=== PATIENT | female | born 1960 | race Caucasian/White ===

== ENCOUNTER 2019-05-27 12:01 | Outpatient (CLI) | payer OTHER, BC, SELFPAY ==
--- NOTE | 2019-05-27 11:32 | DI.RAD_ITS ---
EXAM: XR KNEE LT 4V AP,LAT,HERNANDO,PAT INDICATION: L knee pain. COMPARISON: No exams were available for comparison TECHNIQUE: 2D digital imaging was performed. FINDINGS: The joint spaces are well maintained. There is minimal spurring at the articular aspect of the joe la. No joint effusion is seen. IMPRESSION: Minimal patellofemoral degenerative changes.
== END 2019-05-27 12:21 ==
PROVIDERS: PCP Nurse Practitioner Family; Visit Provider Physician Assistant
DX: M25.562 Pain in left knee (principal); M22.2X2 Patellofemoral disorders, left knee
CPT/HCPCS: 73564

== ENCOUNTER 2019-06-17 02:33 | Outpatient (CLI) | payer OTHER, SELFPAY ==
--- NOTE | 2019-06-17 08:55 | DI.MRI_ITS ---
EXAM: MR LOWER JOINT LT WO CLINICAL HISTORY: L knee injury, medial meniscus tear, S83.241H., H/O FALL TECHNIQUE: Multiplanar multisequence MRI was performed. COMPARISON: XR KNEE LT 4V AP,LAT,HERNANDO,PAT from 05/27/2019 FINDINGS: The cruciate and collateral and extensor mechanisms appear intact. There is a minimal joint effusion . There is an area of high signal in the lateral patellar facet cartilage and a small amount of joanna ma in the underlying bone. The remaining cartilage surfaces appear intact. There is some mild increa sed signal in the body of the medial meniscus but no evidence of a focal tear. Lateral meniscus is un remarkable. The marrow signal is normal. IMPRESSION: Patellar chondromalacia, greatest of the lateral facet. Mild degenerative signal changes in the medi al meniscus. No evidence of a meniscal tear.
== END 2019-06-17 02:53 ==
PROVIDERS: PCP Nurse Practitioner Family; Visit Provider Student in an Organized Health Care Education/Training Program
DX: S83.242A Other tear of medial meniscus, current injury, left knee, initial encounter (principal); M22.42 Chondromalacia patellae, left knee; M23.332 Other meniscus derangements, other medial meniscus, left knee
CPT/HCPCS: 73721

== ENCOUNTER 2019-07-03 07:17 | Day surgery (SDC) | payer OTHER, SELFPAY ==
[2019-07-03 07:28] VITALS: BP 113/75; PULSE 75; RESP 16; TEMP 36.2; O2SAT 96
[2019-07-03] MEDS: Lactated Ringers 1,000 ML 100 ML IV ×2 (07:55→10:34)
[2019-07-03] MEDS: ceFAZolin 2 GM/50 ML BAG IVPB (09:26)
[2019-07-03] MEDS: EPINEPHrine 30 MG/30 ML VIAL (10:35)
[2019-07-03 10:54] VITALS: BP 82/59; PULSE 78; RESP 12; TEMP 36.7; O2SAT 100
[2019-07-03 10:59] VITALS: BP 99/62; PULSE 76; RESP 12; TEMP 36.7; O2SAT 96
[2019-07-03 11:04] VITALS: BP 110/62; PULSE 80; RESP 20; TEMP 36.7; O2SAT 95
[2019-07-03 11:19] VITALS: BP 105/48; PULSE 79; RESP 15; TEMP 36.7; O2SAT 96
--- NOTE | 2019-07-03 11:27 | W.PM.DSUDISC ---
Discharge Plan Disposition Patient Disposition: HOME Condition: Stable Discharge Details Reason For Visit: (L) KNEE MEDIAL MENISCAL TEAR,SYONVITIS Attending Provider: Braulio Edouard Primary Care Provider: Corrina Newby Home Meds and New Rx's Prescriptions: New oxycodone 5 mg tablet 5 - 10 mg PO Q4H PRN (Reason: pain, severe) Qty: 12 RF: 0 Continued No Known Home Meds RF: 0 Discharge Instructions Additional Instructions: Surgery: Left knee arthroscopy with partial medial meniscectomy, partial lateral meniscectomy, patellar chondroplasty, and synovectomy Activity: Weightbearing as tolerated. Avoid high impact activities for a few weeks. Prescriptions: Aspirin 325 mg take 1 daily to prevent a blood clot for 2 weeks Ibuprofen 400-600 mg take 2-3 every 4-6 hours with a meal as needed for moderate pain Oxycodone 5 mg take 1-2 every 4-6 hours as needed for severe pain You may use uvds-oei-sozjvop Tylenol (acetaminophen) as needed for mild pain. These pain medications may be taken all at once or in different combinations as needed. Also, recommend Colace (docusate) as a stool softener as surgery and pain medicine cause constipation. Dressings: Leave dressing in place for 3 to 5 days. Keep clean and dry. Then may remove and cover with Band-Aids as needed. May shower after 7 days if incisions are clean and closed. Follow-up: 10-[address] Edouard Please call the office during business hours with any questions or concerns. Let us know right away if you develop any redness, drainage, fevers, chest pain, or trouble breathing. Do not drink alcohol or drive for at least 24 hours after anesthesia. Referrals: Braulio Edouard MD [ [facility] STAFF PHYSICIAN] - Discharge Orders Discharge Orders: Discharge Order (Routine); Ordered 07/03/19 Ordered By: Braulio Edouard DS: Diagnosis Discharge Diagnosis (1) Synovitis of left knee: Status: Acute (2) Chondromalacia patellae, left knee: Status: Acute (3) Tear of medial meniscus of left knee, current: Status: Suspected
--- NOTE | 2019-07-03 11:42 | W.PM.OP ---
Date of service: 07/03/19 Operative Note Operative Note DATE OF PROCEDURE: 07/03/19 PRE-OP DIAGNOSIS: 1. Left knee medial meniscus tears 2. Left knee small lateral meniscus tear 3. Left knee patellar chondromalacia 4. Left knee synovitis POST-OP DIAGNOSIS: same PROCEDURE: 1. Left knee arthroscopy with partial medial meniscectomy and partial lateral meniscectomy 2. Lateral patellar facet chondroplasty 3. Greater than 2-compartment synovectomy: Anterior, intercondylar notch, medial, and lateral compartments SURGEON: Braulio Edouard AIRPORT ENGINEER: Asael Linn ANESTHESIA: GETA and local ESTIMATED BLOOD LOSS: 5 TOURNIQUET TIME: 0 COMPLICATIONS: None Patient was transported to: PACU Patient's condition: stable Indications: Please see complete medical record for details. Findings: Moderate patellofemoral chondromalacia with grade 2-3 changes and focal areas centrally and laterally. Relatively preserved grade 1-2 changes medial lateral compartment cartilage. Extensive synovitis anteriorly, in the intercondylar notch, medially and laterally. Synovitis was engaging in both the dustin-medial and dustin-lateral compartments. Stable partial thickness undersurface posterior horn medial meniscus tear. Medial meniscus body radial meniscus tear and fraying.. Lateral meniscus body radial meniscus tear and fraying. Partial lateral meniscal root tear with intact posterior meniscotibial ligament and stable posterior horn lateral meniscus to the posterior capsule. Apparent absence of anterior meniscotibial ligament about the expected location of the meniscal root. Intact ACL. Procedure Description: The patient was taken to the operating room and transferred to the operating room table. Anesthesia was induced. All bony prominences were well-padded. Preoperative antibiotics were administered. The left knee was prepped and draped in the usual sterile fashion. The correct patient, procedure, and side of the procedure were all verified prior to incision. The portal sites were pre-injected with 0.25% bupivacaine with epinephrine. A horizontal incision was made for the anteroteral portal and the arthroscope was introduced atraumatically into the patellofemoral compartment with the knee in full extension. A horizontal anteromedial portal was made with the knee in extension and a probe was inserted. A complete diagnostic arthroscopy was performed with findings noted above. A small shaver was used to perform a complete removal of pathologic inflamed lateral, medial and intercondylar notch synovitis. The medial meniscus posterior horn undersurface tear was probed and found to be stable and very small and partial-thickness. This area was left alone. The radial medial meniscus tear was approximately 0.5 cm in depth and 1 cm in length it was trimmed with a shaver until there is stable rim from both the anterior medial anterolateral portals. The post was flipped out of the way and attention was turned to lateral compartment. Although there was a likely partial lateral meniscus root avulsion or tear the surrounding tissue did not appear inflamed or acutely injured. The lateral meniscus posterior horn was also stable to the capsule and via posterior meniscal tibial ligament towards the PCL.. The decision was made to leave this possible root tear alone. A small area of radial lateral meniscus body tear was debrided using mechanical shaver until there is a stable smooth lateral meniscus contour without fraying. The knee was brought back into extension and patellofemoral engaging synovitis completely removed anterolaterally anteromedially. The undersurface of the patella had a central lesion that was well-circumscribed and smooth so was left alone however there was a small area of the lateral patellar facet with a cartilage irregularity that was trimmed using a mechanical shaver until there were no unstable flaps or irregular cartilage surface remaining. The knee was irrigated using the arthroscope pump and suction and all loose bodies and meniscal and synovial tissue were removed. An 18-gauge needle was inserted superior laterally into the knee. All fluid was drained from the knee. The arthroscopic portals were closed using 3-0 Monocryl in a buried fashion. Steri-Strips were applied across the incisions. 25 cc of 0.25% bupivacaine with epinephrine and 4 mg of morphine was injected into the knee. Dry 4 x 4 gauze and ABD were applied about the front of the knee and wrapped in sterile Webril. An John wrap was applied over this bandage. The patient awoke from anesthesia without complication was taken to recovery room in stable condition.
[2019-07-03 12:02] VITALS: BP 112/67; PULSE 72; RESP 16; TEMP 36.1; O2SAT 94
[2019-07-03] MEDS: oxyCODONE 5 MG TAB PO (12:02)
== END 2019-07-03 13:23 | disposition home or self-care (01) ==
PROVIDERS: PCP Nurse Practitioner Family; Visit Provider Student in an Organized Health Care Education/Training Program
PROC: (CPT 29870; principal; 2019-07-03 08:30)
DX: S83.222A Peripheral tear of medial meniscus, current injury, left knee, initial encounter (principal); S83.262A Peripheral tear of lateral meniscus, current injury, left knee, initial encounter; W01.0XXA Fall on same level from slipping, tripping and stumbling without subsequent striking against object, initial encounter; M65.9 Synovitis and tenosynovitis, unspecified; M22.42 Chondromalacia patellae, left knee; Y99.0 Civilian activity done for income or pay
CPT/HCPCS: 29876; 29880; J0690; J1100; J1885; J2001; J2250; J2405; J2704; J3010

== ENCOUNTER 2019-11-27 18:38 | Emergency (ER) | payer BC, SELFPAY ==
[2019-11-27 18:44] VITALS: BP 122/66; PULSE 84; RESP 14; TEMP 36.9; O2SAT 96
--- NOTE | 2019-11-27 20:34 | ED.GENADUL_ITS ---
Discharge Plan Disposition Patient Disposition: HOME Condition: Stable Discharge Details Chief Complaint: Laceration Clinical Impression: Laceration of finger of left hand Primary Care Provider: Corrina Newby ED Provider: Ezekiel Minor Home Meds and New Rx's Prescriptions: No Action No Known Home Meds RF: 0 Discharge Instructions Instructions: Finger Laceration (ED), Skin Adhesive Care (ED) Additional Instructions: Please keep dressing intact for the next 2 days. Change dressing daily thereafter. Monitor for signs of infection including increased redness, pain, swelling, discharge. Return to the ER for any worsening or new concerning symptoms. Discharge Data Discharge Date/Time-TO BE ENTERED AT DEPARTURE: 11/27/19 21:05 Medical Decision Making 59-year-old female here with left thumb laceration. Wound was irrigated with copious sterile saline. Wound repaired with Steri-Strips and skin adhesive. Hemostasis achieved and wound reapproximated well. Usual customary discharge instructions were reviewed with the patient. HPI General Mode of arrival: ambulatory . Date/Time Provider Initiated Documentation: 11/27/19 19:26 . Limitations to Documentation: no limitations . Information obtained by: patient . HPI Narrative: 59-year-old female here with left thumb laceration. Patient notes she lacerated her thumb with a knife while cutting watermelon just prior to arrival. Wound is been bleeding. Bleeding improved with dressing. No associated numbness or tingling. Related Data Home Medications Medication Instructions Recorded Confirmed Unknown [No Known Home Meds] 11/27/19 11/27/19 Allergies Allergy/AdvReac Type Severity Reaction Status Date / Time erythromycin base Allergy Intermediate burning Verified 11/27/19 18:48 and redness in her eyes General Stated Complaint: Laceration KENY: 4 Review of Systems Integumentary/Breasts Comments: lac as per hpi Neurologic Neurologic: Reports as per HPI [facility] Social History Smoking/Tobacco Use Status: Never Alcohol Intake: never Drug use: Never Substance use type: does not use Current gender identity: female Do you feel safe at home: Yes Do you feel safe in your relationship?: Yes Female Reproductive History Menstrual control method: progestin IUCD Exam Neuro Motor: other (Motor intact distal thumb) Sensory Exam: no sensory deficits noted (Distal left thumb) Extrem Left upper extremity: hand Details: laceration (distal left thumb) Course Vital Signs Vital signs: Vital Signs Temperature 36.9 C 11/27/19 18:44 Pulse 84 11/27/19 18:44 Respiratory Rate 14 11/27/19 18:44 Blood Pressure 122/66 11/27/19 18:44 Pulse Oximetry 96 11/27/19 18:44 Temperature 36.9 C 11/27/19 18:44 Temperature Source Skin 11/27/19 18:44 Pulse 84 11/27/19 18:44 Respiratory Rate 14 11/27/19 18:44 Respiratory Effort 11/27/19 18:50 Blood Pressure 122/66 11/27/19 18:44 Blood Pressure Position Sitting 11/27/19 18:44 Pulse Oximetry 96 11/27/19 18:44 Oxygen Delivery Method Room Air 11/27/19 18:44 Oxygen Flow Rate 0 11/27/19 18:44 Pain Level 3 11/27/19 18:51 Procedures Laceration Laceration 1: Site: hand Side (If applicable): left Size (cm): 1.5 Description: linear Depth: simple, single layer Pre-repair: wound explored, irrigated extensively and deep structures intact Size (cm): other (steristrips, skin adhesive)
== END 2019-11-27 21:05 | disposition home or self-care (01) ==
LOC: ER 21:19
PROVIDERS: Emergency Provider Student in an Organized Health Care Education/Training Program; PCP Nurse Practitioner Family
DX: S61.012A Laceration without foreign body of left thumb without damage to nail, initial encounter (principal); W26.0XXA Contact with knife, initial encounter
CPT/HCPCS: 12001; 90471

== ENCOUNTER 2020-03-03 15:23 | Outpatient (CLI) | payer OTHER, SELFPAY ==
--- NOTE | 2020-03-03 15:35 | DI.RAD_ITS ---
EXAM: XR KNEE LT 3V AP,LAT,HERNANDO CLINICAL HISTORY: pain left knee. TECHNIQUE: 2D digital imaging was performed. COMPARISON: CR XR KNEE LT 4V AP,LAT,HERNANDO,PAT from 05/27/2019 FINDINGS: BONES: No acute fracture is present. No bony destructive lesion is seen. JOINTS: The knee is normally aligned. Small joint effusion. SOFT TISSUE: Normal. IMPRESSION: Normal radiographs of the left knee. DATA REPOSITORY: RADIATION DOSE DELIVERED:
== END 2020-03-03 15:43 ==
PROVIDERS: PCP Nurse Practitioner Family; Referring Provider Nurse Practitioner Family; Visit Provider Student in an Organized Health Care Education/Training Program
DX: M25.562 Pain in left knee (principal)
CPT/HCPCS: 73562

== ENCOUNTER 2020-06-22 00:24 | Outpatient (CLI) | payer OTHER, SELFPAY ==
--- NOTE | 2020-06-22 16:06 | DI.MRI_ITS ---
EXAM: MR LOWER JOINT LT WO CLINICAL HISTORY: SYNOVITIS LT KNEE, CHONDROMALACIA PATELLA,TEAR MEDIAL MENISCUS,M65.9,M22.42. TECHNIQUE: Multiplanar multisequence MRI was performed. COMPARISON: MR MR LOWER JOINT LT WO from 06/17/2019 FINDINGS: BONES: There is no fracture or contusion pattern. JOINTS: There is again seen mild hyperintense signal in the lateral patellar facet and mild increased signal in the patella. This is stable compared to the prior examination. No effusion is present. TENDONS: Extensor mechanism: Unremarkable. Medial retinaculum: Unremarkable. Lateral retinaculum: Unremarkable. Popliteus: Unremarkable. MUSCLES: Unremarkable. MENISCI: There is hyperintense signal seen in the body of the medial meniscus which does appear to co ntact the articular surface consistent with a tear. The lateral meniscus is unremarkable. SOFT TISSUES: Unremarkable. LIGAMENTS: Anterior Cruciate: Unremarkable. Posterior Cruciate: Unremarkable. Medial Collateral:Unremarkable. Lateral Collateral: Unremarkable. OTHER: IMPRESSION: 1. Stable chondromalacia patella. 2. Findings consistent with a tear of the body of the medial meniscus. DATA REPOSITORY:
== END 2020-06-22 00:44 ==
PROVIDERS: PCP Nurse Practitioner Family; Visit Provider Student in an Organized Health Care Education/Training Program
DX: M22.42 Chondromalacia patellae, left knee (principal); M65.9 Synovitis and tenosynovitis, unspecified
CPT/HCPCS: 73721

== ENCOUNTER 2020-09-10 08:57 | Day surgery (SDC) | payer OTHER, SELFPAY ==
[2020-09-10] VITALS (8 sets, daily range): BP systolic 116–131; BP diastolic 46–77; PULSE 75–84; RESP 9–21; TEMP 36–36.5; O2SAT 93–97
[2020-09-10] MEDS: Lactated Ringers 1,000 ML 100 ML IV (09:35)
[2020-09-10] MEDS: ceFAZolin 2 GM/50 ML BAG IVPB (12:55)
[2020-09-10] MEDS: EPINEPHrine 30 MG/30 ML VIAL (14:00)
[2020-09-10] MEDS: fentaNYL 100 MCG/2 ML VIAL IVP (15:00)
--- NOTE | 2020-09-10 15:10 | PDOC.DSDIS_ITS ---
Discharge Plan Disposition Patient Disposition: HOME Condition: Stable Discharge Details Reason For Visit: Left knee surgery Attending Provider: Braulio Edouard Primary Care Provider: Corrina Newby Home Meds and New Rx's Prescriptions: New naproxen 250 mg tablet 250 - 500 mg PO BID PRN (Reason: Moderate pain or swelling) Qty: 60 RF: 0 aspirin 81 mg tablet,delayed release (DR/EC) 81 mg PO DAILY 30 Days Qty: 30 RF: 0 oxycodone 5 mg tablet 5 - 10 mg PO Q4H PRN (Reason: moderate to severe pain) Qty: 16 RF: 0 Discharge Instructions Additional Instructions: Surgery: Knee arthroscopy with partial medial meniscectomy Activity: Advance to weightbearing as tolerated. Progress to full range of motion as soon as comfortable. No knee brace or crutches needed. Recommend avoiding cutting, pivoting, sports, and squatting for 2 to 3 months. A physical therapy prescription will be sent electronically to start in 1 to 2 weeks. Prescriptions: Aspirin 81 mg take 1 daily to prevent a blood clot for 30 days Naproxen 250 mg take 1-2 every 12 hours with a meal as needed for moderate pain Oxycodone 5 mg take 1-2 every 4-6 hours as needed for severe pain You may use doke-qll-aemjrqs Tylenol (acetaminophen) as needed for mild pain. These pain medications may be taken all at once or in different combinations as needed. Also, recommend Colace (docusate) as a stool softener as surgery and pain medicine cause constipation. Dressings: Leave dressing in place for 3 days. May then remove and leave open to air or cover incisions with Band-Aids. May shower after 5 days. Follow-up: 10-[address] Edouard (09/21/20 at 2:00 PM) Let us know right away if you develop any redness, drainage, fevers, chest pain, or trouble breathing. Do not drink alcohol or drive for at least 24 hours after anesthesia. Please call the office during business hours with any questions or concerns. Referrals: Braulio Edouard MD [ [facility] STAFF PHYSICIAN] - Discharge Orders Discharge Orders: Discharge Order (Routine); Ordered 09/10/20 Ordered By: Braulio Edouard DS: Diagnosis Discharge Diagnosis (1) Tear of medial meniscus of left knee, current: Status: Suspected
--- NOTE | 2020-09-10 15:19 | ROE_ITS ---
Date of service: 09/10/20 Time of Service: 13:00 Operative Note Operative Note DATE OF PROCEDURE: 09/10/20 PRE-OP DIAGNOSIS: Right knee recurrent medial meniscus tear POST-OP DIAGNOSIS: same PROCEDURE: Right knee 1. Partial medial meniscectomy, CPT #77098 SURGEON: Braulio Edouard ELEVATOR TECHNICIAN: Arabella Dodge ANESTHESIA TYPE: Local By Surgeon and General LMA/ETT Refer to Anesthesia Record ESTIMATED BLOOD LOSS: 5 PATHOLOGY: none sent TOURNIQUET TIME: 0 Patient was transported to: PACU Patient's condition: stable Indications: Please see complete medical record for details. Findings: Recurrent medial meniscus tear with significant radial extension toward the capsule about the medial meniscal body with degenerative type mucoid tissue in both the radial and horizontal complex type pattern. Although medial meniscus body was stable on inspection, probing quickly revealed degenerative, unstable and frayed tissue on the superior and inferior aspects of the horizontal tear as well as about the anterior and posterior margins of the radial component. These were in the zone of previously stable probed medial meniscus tear with surrounding reasonable tissue that had clearly worsened as opposed to healing over the past year after her prior arthroscopy. Grade 1?2 cartilage softening and fraying isolated about the medial tibial plateau and medial femoral condyle near the zone of medial meniscus tear. Stable posterior horn medial meniscal root. Intact ACL and PCL. Intact lateral meniscus with minimal undersurface synovitis fraying of the posterior horn. Stable and intact lateral meniscus root. Grade 1?2 cartilage softening and fraying somewhat generalized patellofemoral compartment. Exam under anesthesia confirmed stable collateral and cruciate ligaments with full knee range of motion. Procedure Description: In the operating room, genral anesthesia was induced. The patient was positioned supine on the operating room table. All bony prominences were well-padded. Preoperative antibiotics were administered. The knee was prepped and draped in the usual sterile fashion. The correct patient, procedure, and side of the procedure were all verified prior to incision. Exam under anesthesia was performed. 10 cc of 1% lidocaine containing epinephrine was infiltrated about the anterior medial and anterior lateral knee arthroscopy portals. The portals were established and a complete diagnostic arthroscopy was performed with relevant findings detailed above. Attention was then turned to the injured medial meniscus tissue. It was probed and superior inferior leaflet fragments were unstable, as well as unstable depth as the probe fell through radially through significantly frayed and degenerative weakened tissue and complex pattern and not amendable to repair. Using a combination of hand instruments including meniscal biters and a power mechanical shaver and working through the anteromedial and anterolateral compartments the meniscus was debrided of all torn tissue and degenerative tissue to a stable margin. Care was taken to preserve as much meniscus tissue was possible although there was significant extension radially about the worst zone of injury. The meniscus was contoured anteriorly and into the posterior horn for smooth margin. The medial meniscus remnant was probed and found to have a stable margin, stable root, and no other tears. Minimal debridement was performed the mechanical shaver and the lateral compartment beneath the undersurface of the posterior horn lateral meniscus of some adjacent synovitis as well as in the patellofemoral compartment of some patellofemoral cartilage fraying. There was a superficial medial femoral condyle small cartilage lesion near the meniscus tear as well as some cartilage thinning fraying and possibly fissuring of the medial tibial plateau that did not require chondroplasty or microfracture. Under direct arthroscopic visualization an 18-gauge needle was passed into the knee from superior lateral to the superior patellar pouch. The knee was copiously irrigated with arthroscopic fluid until there was a clear effluent before being drained of all fluid. The anteromedial anterolateral portals were closed in 3-0 Monocryl in a buried interrupted fashion. 20 cc of 1% lidocaine with epinephrine containing 4 mg of morphine was infiltrated into the knee through the previously placed needle. Mastisol, Steri-Strips, dry 4 x 4 gauze, and sterile soft roll wrapped about the knee. The right lower extremity was then wrapped in a gentle compressive John bandage. The patient awoke from anesthesia without complication and was transferred to the recovery room in a stable condition.
[2020-09-10] MEDS: oxyCODONE 5 MG TAB PO (15:53)
== END 2020-09-10 16:55 | disposition home or self-care (01) ==
PROVIDERS: PCP Nurse Practitioner Family; Visit Provider Student in an Organized Health Care Education/Training Program
PROC: (CPT 29870; principal; 2020-09-10 11:00)
DX: S83.242A Other tear of medial meniscus, current injury, left knee, initial encounter (principal); M22.42 Chondromalacia patellae, left knee; M65.862 Other synovitis and tenosynovitis, left lower leg
CPT/HCPCS: 29881; J0690; J1100; J1885; J2001; J2405; J2704; J3010

== ENCOUNTER 2021-09-21 08:51 | Outpatient (CLI) | payer OTHER, SELFPAY ==
--- NOTE | 2021-09-21 08:30 | DI.RAD_ITS ---
Exam(s) XR KNEE LT 3V AP,LAT,HERNANDO EXAM: XR KNEE LT 3V AP,LAT,HERNANDO CLINICAL HISTORY: left knee f/u. TECHNIQUE: 2D digital imaging was performed. COMPARISON: CR XR KNEE LT 3V AP,LAT,HERNANDO from 03/03/2020 FINDINGS: 3 views There is no evidence of fracture. There is a small joint effusion noted. There is a defect in the s kin anterior to the knee which is probably a laceration. There is no radiopaque foreign body. No pa tellar fracture There is no degenerative narrowing of the knee joint space. No osteophytes. IMPRESSION: Anterior soft tissue findings as above. No osseous findings. However, there does appear to be a small joint effusion. DATA REPOSITORY: RADIATION DOSE DELIVERED:
== END 2021-09-21 08:52 | disposition home or self-care (01) ==
LOC: DIORS 08:51
PROVIDERS: PCP Nurse Practitioner Family; Referring Provider Nurse Practitioner Family; Visit Provider Student in an Organized Health Care Education/Training Program
DX: M70.52 Other bursitis of knee, left knee (principal); M25.462 Effusion, left knee; M79.89 Other specified soft tissue disorders
CPT/HCPCS: 73562

== ENCOUNTER 2022-05-03 15:47 | Outpatient (CLI) | payer OTHER, SELFPAY ==
[2022-05-03 15:58] VITALS: BP 112/79; PULSE 80; RESP 20; TEMP 36.6; O2SAT 99
--- NOTE | 2022-05-03 16:41 | PDOC.PAIN_ITS ---
Date of service: 05/03/22 Time of Service: 16:51 Pain Clinic Procedure Note Procedure Note Procedure Note: ULTRASOUND GUIDED LEFT PES ANSERINE BURSA INJECTION Pre-Procedural Evaluation: GUSTAVO MARIE has been referred to the [facility] for an Ultrasound Guided left Pes Anserine bursa injection for a chief complaint of medial knee calf pain. Pre-procedure Pain Score: 5/10 Dx: Pes Anserine bursitis Patient was interviewed and the medical record reviewed. There were no medical, pharmacologic, radiographic, or other structural contraindications to preforming an ultrasound guided injection. Risks and expected side effects as well as potential benefits of the procedure were reviewed. The patient consent form was signed and witnessed. Standard time-out procedure was performed. The use of direct ultrasound visualization of the needle (rather than a non- guided injection) was required to increase patient safety by excluding inadvertent intramuscular, intratendinous, or intraneural needle placement and minimizing bleeding by avoiding osteochondral or vascular injury from the needle. Additionally, the increased accuracy of placement may increase clinical effectiveness and will allow higher diagnostic specificity when evaluating effectiveness of this injection. Procedure Description: The patient was placed in the supine position and automated blood pressure cuff and pulse oximeter applied for monitoring during the procedure and recorded in the medical record. Pre-injection ultrasound scanning of the area of interest was performed using linear transducer, identifying relevant anatomy, landmarks, and neurovascular structures allowing for optimal needle path. The site was then prepared in the usual sterile fashion, using thorough Chlorhexadine preparation of the skin and sterile draping. The same ultrasound transducer was then passed into the sterile field using sterile probe cover and sterile ultrasound gel. The injection target was again visualized. Skin and subcutaneous tissues were anesthetized with 2 mL of 1% Lidocaine. A 22 G Pajunk 3.5 ultrasound needle was placed under live ultrasound guidance, using an in-plane approach, to the target area. After visualization of the needle tip at the target area, 1 cc of Depomedrol (40 mg/cc) was injected into the bursa after negative aspiration for blood. Next 3 cc of 2% Lidocaine was injected into the bursa. Ultrasound images were captured and stored for documentation purposes. Post-procedure Pain Score:0/10 Vital signs were stable throughout the procedure and were as recorded in the docflowsheet by the nursing staff. Follow up plans and appointments were discussed with the patient.Post procedure instruction was given as documented in nursing documentation and having met discharge criteria, they were discharged from the [facility]. COMMENTS: I also gave her a handout on Pes Anserine busitis. Mateusz Turner DO, MPH [facility]-Pain Management [facility] for [facility] Management
[2022-05-03 16:42] VITALS: PULSE 63; O2SAT 100
[2022-05-03] MEDS: methylPREDNISolone ACETATE 40 MG/ML VIAL IJ (16:50)
[2022-05-03] MEDS: Lidocaine 2% Pres-Free 5 ML VIAL IJ (16:50)
== END 2022-05-03 15:48 | disposition home or self-care (01) ==
PROVIDERS: PCP Nurse Practitioner Family; Visit Provider Preventive Medicine Occupational Medicine
DX: M70.52 Other bursitis of knee, left knee (principal)
CPT/HCPCS: 20611; J1030

== ENCOUNTER 2022-09-10 07:15 | Emergency (ER) | payer BC, SELFPAY ==
[2022-09-10] VITALS (60 sets, daily range): BP systolic 108–155; BP diastolic 39–100; PULSE 59–86; RESP 14–22; TEMP 36.4; O2SAT 89–98
--- NOTE | 2022-09-10 07:30 | DI.CT_ITS ---
Exam(s) CT HEAD WO EXAM: CT HEAD WO CLINICAL HISTORY: dizzy, r/o stroke/bleed. TECHNIQUE: Imaging Protocol: Axial computed tomography images with coronal and sagittal reformatted images were created and reviewed COMPARISON: No exams were available for comparison FINDINGS: Ventricles and Extra axial spaces: Normal in size and morphology for the patient's age. Hemorrhage: None. Cerebral parenchyma: Normal. Midline shift: None. Brainstem/Cerebellum: Normal. Calvarium: Normal. Visualized Paranasal sinuses/Mastoids: Clear. Soft Tissues: Unremarkable. IMPRESSION: No acute intracranial process. RADIATION DOSE DELIVERED: 780.53mGy.cm Total DLP DATA REPOSITORY: All CT scans at this facility are submitted to the National Radiology Data Registry (NRDR) Dose Index Registry (DIR) with the [employer] (ACR). RADIATION OPTIMIZATION: All CT scans at this facility use at least one of these dose optimization te chniques: automated exposure control; mA and/or kV adjustment per patient size (includes targeted exa ms where dose is matched to clinical indication); or iterative reconstruction.
--- NOTE | 2022-09-10 07:30 | RT.EKG_ITS ---
APPROVED REPORT Exam: Resting ECG Reason for Exam: dizzy Patient Location: E HR:66 bpm ECG Measurements Heart Rate 66 AXIS MN 175 P 59 QRSd 95 QRS -15 QT 410 T 59 QTc 431 Conclusion Sinus rhythm...normal P axis, V-rate 60- 99 Physician: no stemi
--- NOTE | 2022-09-10 07:41 | W.ED.GENAD ---
Discharge Plan Discharge Details Chief Complaint: Dizzy/Sync Clinical Impression: Dizziness Primary Care Provider: Corrina Newby ED Provider: Kwame Chamorro Home Meds and New Rx's Prescriptions: No Action No Known Home Meds Medical Decision Making 61-year-old female with a past medical history of type 2 diabetes, who presents today for evaluation of dizziness. Patient states that she woke up this morning and while under the covers in bed turned to the side, looked at her phone and noticed that she felt the world spinning in a horizontal fashion. She denies any tinnitus. No headache. When she got up she felt notably dizzy and imbalance and felt that the world was spinning around. She came to the ER with her significant other, and symptoms had improved but not resolved by that time. She was nauseous but had no vomiting. She denies any current chest pain or shortness of breath. She denies any numbness tingling or weakness. She denies having symptoms like this in the past. She denies any recent falls or trauma. No history of stroke. No other complaints at this time. Physical exam demonstrates a well-appearing female, she does have horizontal unidirectional fatigable nystagmus to the left, negative test of skew for vertical correction. Patient ambulates well with no wide-based or ataxic gait. No other focal abnormalities on neurologic assessment. At this time symptoms appear consistent with peripheral vertigo. We will hydrate and give meclizine. We will get a CT scan to rule out significant stroke or bleed. We will monitor closely and reassess. Of note family does admit that for the last few years the patient developed mild heartburn whenever she exerts herself per , we will check EKG and troponin as well out of an abundance of precaution. Patient will be signed out to my colleagues for follow-up on labs and imaging. HPI General Date/Time Provider Initiated Documentation: 09/10/22 07:21. HPI Narrative: 61-year-old female with a past medical history of type 2 diabetes, who presents today for evaluation of dizziness. Patient states that she woke up this morning and while under the covers in bed turned to the side, looked at her phone and noticed that she felt the world spinning in a horizontal fashion. She denies any tinnitus. No headache. When she got up she felt notably dizzy and imbalance and felt that the world was spinning around. She came to the ER with her significant other, and symptoms had improved but not resolved by that time. She was nauseous but had no vomiting. She denies any current chest pain or shortness of breath. She denies any numbness tingling or weakness. She denies having symptoms like this in the past. She denies any recent falls or trauma. No history of stroke. No other complaints at this time. Related Data Home Medications Medication Instructions Recorded Confirmed Unknown [No Known Home Meds] 09/21/21 05/03/22 Allergies Allergy/AdvReac Type Severity Reaction Status Date / Time erythromycin base Allergy Intermediate burning Verified 09/10/22 07:25 and redness in her eyes General Stated Complaint: Dizzy/Sync KENY: 3 Review of Systems All systems reviewed & are unremarkable except as noted in HPI and below PFSH All Active Problems (Updated 09/10/22 @ 07:48 by Kwame Chamorro DO) Dizziness (Acute) COVID-19 (Acute 05/12/21) Pes anserinus bursitis of left knee (Acute) Type II diabetes mellitus with complication, uncontrolled (Acute) Increased body mass index (Acute) Hiatal hernia (Acute) gastritis Herpes (Acute) Esophageal reflux (Acute) Diverticulosis (Acute) Calculus, kidney (Acute) Fagan cyst (Acute) Chondromalacia patellae, left knee (Acute ~04/2019) Synovitis of left knee (Acute ~04/2018) Indigestion (Acute) Leg pain, left (Acute) Surgical History Biopsy of breast 2005 -Left Benign Laparoscopic, Ovarian Cystectomy 1997 Right Repair of inguinal hernia 2009 Status post de Quervain's release surgery R wrist Family History Other Coronary artery disease Family history of breast cancer Leukemia Social History Smoking/Tobacco Use Status: Never Smoking risk assessment performed?: Yes Alcohol Intake: never Drug use: Never Substance use type: does not use Current gender identity: female Do you feel safe at home: Yes Do you feel safe in your relationship?: Yes Female Reproductive History Menstrual control method: progestin IUCD Exam Narrative Exam Narrative: 1.Const: Well-nourished, Well-developed, appearing stated age 2.Eyes: PERRL, no conjunctival injection, and symmetrical lids. 3.ENT: Atraumatic external nose and ears. Moist MM. Neck: Symmetric, trachea midline, No thyromegaly. Horizontal left-sided unidirectional fatigable nystagmus is present. 4.CVS: +S1/S2, No murmurs or gallops. Peripheral pulses 2+ and equal in all extremities. Brisk capillary refill in all extremities. 5.RESP: Unlabored respiratory effort. Clear to auscultation bilaterally. No wheezes rales or rhonchi 6.GI: Soft, Nontender/Nondistended, No hepatosplenomegaly. No guarding or rebound. 7.MSK: Normocephalic/Atraumatic, Extremities w/o deformity or ttp No cyanosis or clubbing, Normal movement of all extremities 8.Skin: Warm, Dry. No rashes or lesions. 9.Neuro: solutions market consultant II-XII grossly intact. Sensation grossly intact, no focal neurologic deficits. All 6 cardinal planes of vision are fully intact. No evidence of rotatory or vertical nystagmus. The patient demonstrated a normal [id number]-ucrn-[id number], good dexterity. There was no evidence of dysdiadochokinesia. Patient was able to ambulate without difficulty. There was no wide-based gait. Romberg testing was normal. Kcys-eo-lzvl testing was normal. Sensation was intact bilaterally as well as muscle strength bilaterally for all extremities. Patient was able to verbalize butter cup with no slurring, or miss pronunciation. Cerebellar function testing is normal. The patient demonstrates a normal hints exam with no findings concerning for a central event. No vertical nystagmus. Patient does have horizontal unidirectional left-sided fatigable nystagmus. The head impulse test demonstrates notable positive reproduction of symptoms with leftward movement. Normal test of skew. No suggestion of a central cerebellar event. 10.Psych: (AAO) x3. Appropriate mood and affect Course Vital Signs Vital signs: Vital Signs Temperature 36.4 C 09/10/22 07:20 Pulse 69 09/10/22 07:20 Respiratory Rate 18 09/10/22 07:20 Blood Pressure 152/88 H 09/10/22 07:20 Pulse Oximetry 97 09/10/22 07:20 Temperature 36.4 C 09/10/22 07:20 Temperature Source Oral 09/10/22 07:20 Pulse 69 09/10/22 07:20 Respiratory Rate 18 09/10/22 07:20 Blood Pressure 152/88 H 09/10/22 07:20 Blood Pressure Position Supine 09/10/22 07:20 Pulse Oximetry 97 09/10/22 07:20 Oxygen Delivery Method Room Air 09/10/22 07:20 Oxygen Flow Rate 0 09/10/22 07:20
[2022-09-10] MEDS: Normal Saline 1,000 ML 1000 ML IV (07:45)
[2022-09-10] MEDS: Meclizine 25 MG TAB PO (07:45)
[2022-09-10 07:49] LABS: Abs Immature Grans 0.03 10^3/uL (0.0-0.06); Absolute Basophil Count 0.08 10^3/uL (0.0-0.2); Absolute Eosinophil Count 0.23 10^3/uL (0.0-0.7); Absolute Lymphocyte Count 2.73 10^3/uL (1.2-3.4); Absolute Monocyte Count 0.64 10^3/uL (0.1-0.8); Absolute Neutrophil Count 4.25 10^3/uL (1.2-6.7); Eosinophils % 2.9; HCT 40.1 % (36.0-46.0); HGB 13.6 g/dL (11.2-15.7); Immature Grans % 0.4; Lymphocytes % 34.3; MCH 29.2 pg (27.0-33.0); MCHC 33.9 % (32.0-36.0); MCV 86 fL (80-95); MPV 9.9 fL (8.0-11.0); Neutrophils % 53.4; Platelet Count 265 10^3/uL (130-400); RBC 4.65 10^6/uL (3.93-5.22); RDW 11.9 % (11.7-14.6); RDW-SD 37.2 fL; WBC 7.96 10^3/uL (4.4-10.8)
[2022-09-10] MEDS: Pantoprazole 40 MG TABCR PO (08:02)
[2022-09-10 08:06] LABS: ALT 16 U/L (14-59); AST 12 U/L (15-37); Albumin 3.5 g/dL (3.4-5.0); Alkaline Phosphatase 96 U/L (46-116); BUN 17 mg/dL (7-18); Bilirubin, Total 0.5 mg/dL (0.2-1.0); CREATININE 0.8 mg/dL (0.55-1.02); Calcium 8.7 mg/dL (8.5-10.1); Chloride 102 mmol/L (98-107); Estimated GFR 83.78 (mL/min/1.73m2); Glucose 175 mg/dL (74-106); Potassium 3.8 mmol/L (3.5-5.1); Sodium 139 mmol/L (136-145); Total Protein 7.7 g/dL (6.4-8.2)
[2022-09-10 08:07] LABS: Troponin I < 50 ng/L (<or=60)
--- NOTE | 2022-09-10 08:36 | DI.VRAD_ITS ---
PROCEDURE INFORMATION: Exam: CT Head Without Contrast Exam date and time: 09/10/2022 7:12 AM Age: 61 years old Clinical indication: Stroke-like symptoms; Dizziness/giddiness TECHNIQUE: Imaging protocol: Computed tomography of the head without contrast. Reformatted images were created and reviewed. Radiation optimization: All CT scans at this facility use at least one of these dose optimization techniques: automated exposure control; mA and/or kV adjustment per patient size (includes targeted exams where dose is matched to clinical indication); or iterative reconstruction. Other technique: STROKE PROTOCOL was implemented. COMPARISON: No relevant prior studies available. FINDINGS: Brain: No evidence for acute territorial infarct. No hemorrhage. No significant white matter disease. No edema. Cerebral ventricles: No ventriculomegaly. Paranasal sinuses: Visualized sinuses are unremarkable. No fluid levels. Mastoid air cells: No mastoid effusion. Bones/joints: No acute fracture. Soft tissues: No acute abnormality. IMPRESSION: No acute intracranial abnormality. ASSESSMENT: ASPECTS ([place] Stroke Program Early CT Score) is 10. Dictated and Authenticated by: Donnie Wylie MD. Ordering:LACHELLE Puente MD
[2022-09-10] MEDS: LORazepam 2 MG/ML VIAL 1 MG IVP (08:46)
[2022-09-10] MEDS: Dexamethasone 10 MG/ML VIAL IVP (08:46)
[2022-09-10 10:54] LABS: Troponin I < 50 ng/L (<or=60)
[2022-09-10] MEDS: Lactated Ringers 1,000 ML 125 ML IV (10:55)
[2022-09-10] MEDS: diphenhydrAMINE 50 MG/ML VIAL IVP (10:55)
--- NOTE | 2022-09-10 11:00 | DI.CT_ITS ---
Exam(s) CT BRAIN NECK CTA EXAM: CT BRAIN NECK CTA CLINICAL HISTORY: vetigo, seeing yellow spots. TECHNIQUE: Imaging Protocol: Axial CT angiography was performed with multi-slice acquisition and mu lti-planar and 3D reconstructions. CONTRAST MATERIAL: Intravenous: Omnipaque 350 Contrast volume:structured data in ml COMPARISON: CT CT HEAD WO from 09/10/2022 FINDINGS: CT Head W/O and W contrast: Ventricles and Extra axial spaces: Normal in size and morphology for the patient's age. Hemorrhage: None. Cerebral parenchyma: Normal. Midline shift: None. Brainstem/Cerebellum: Normal. Calvarium: Normal. Visualized Paranasal sinuses/Mastoids: Mucosal thickening. Soft Tissues: Unremarkable. Enhancement: Normal. CTA Brain W: Internal Carotid Arteries: Petrous: Normal. Cavernous: Normal. Cerebral: Normal. Middle Cerebral Arteries: Right: No aneurysm, occlusion or significant stenosis. Left: No aneurysm, occlusion or significant stenosis. Anterior Cerebral Arteries: Right: No aneurysm, occlusion or significant stenosis. Left: No aneurysm, occlusion or significant stenosis. Posterior cerebral Arteries: Right: No aneurysm, occlusion or significant stenosis. Left: No aneurysm, occlusion or significant stenosis. Vertebral Arteries: Right: No aneurysm, occlusion or significant stenosis. Left: No aneurysm, occlusion or significant stenosis. Basilar Artery: No aneurysm, occlusion or significant stenosis. CTA Neck W: Common Carotid: Right: No dissection, occlusion or significant stenosis. Left: No dissection, occlusion or significant stenosis. External Carotid: Right: No dissection, occlusion or significant stenosis. Left: No dissection, occlusion or significant stenosis. Internal Carotid: Right: No dissection, occlusion or significant stenosis. Left: No dissection, occlusion or significant stenosis. Vertebral Artery: Right: No dissection, occlusion or significant stenosis. Left: No dissection, occlusion or significant stenosis. Lung Apices: Evaluation limited by expiratory changes and respiratory motion. Question of ground-gla ss opacities bilaterally. Bones: No acute abnormality. Soft Tissues: Normal. IMPRESSION: 1. Normal CTA examination of the [place]. 2. Unremarkable CT Head. 3. Normal CTA examination of the neck. 4. Question of bilateral upper lobe ground-glass opacities versus expiratory changes and respiratory motion.. Clinical correlation recommended RADIATION DOSE DELIVERED: 2,155.01mGy.cm Total DLP DATA REPOSITORY: All CT scans at this facility are submitted to the National Radiology Data Registry (NRDR) Dose Index Registry (DIR) with the [employer] (ACR). RADIATION OPTIMIZATION: All CT scans at this facility use at least one of these dose optimization te chniques: automated exposure control; mA and/or kV adjustment per patient size (includes targeted exa ms where dose is matched to clinical indication); or iterative reconstruction.
[2022-09-10] MEDS: Normal Saline Flush 10 ML SYR IVP (12:23)
[2022-09-10] MEDS: Normal Saline - Diluent 50 ML VIAL IJ (12:23)
[2022-09-10] MEDS: Omnipaque 350 MG/ML 100 ML BTL IJ (12:23)
--- NOTE | 2022-09-10 13:21 | DI.VRAD_ITS ---
PROCEDURE INFORMATION: Exam: CTA Head With Contrast, Arteriography Exam date and time: 09/10/2022 11:09 AM Age: 61 years old Clinical indication: Other: Vertigo, seeing yellow spots TECHNIQUE: Imaging protocol: Computed tomographic angiography of the head with contrast. Exam focused on the arteries. 3D rendering (Not supervised by radiologist): MIP and/or 3D reconstructed images were created by the technologist. Radiation optimization: All CT scans at this facility use at least one of these dose optimization techniques: automated exposure control; mA and/or kV adjustment per patient size (includes targeted exams where dose is matched to clinical indication); or iterative reconstruction. Contrast material: OMNIPAQUE 350; Contrast volume: 85 ml; Contrast route: INTRAVENOUS (IV); COMPARISON: CT HEAD WO 09/10/2022 7:12 AM FINDINGS: ANTERIOR CIRCULATION: Right internal carotid artery: Intracranial segment is patent with no significant stenosis. No aneurysm. Right middle cerebral artery: No occlusion or significant stenosis. No aneurysm. Right anterior cerebral artery: No occlusion or significant stenosis. No aneurysm. Left internal carotid artery: Intracranial segment is patent with no significant stenosis. No aneurysm. Left middle cerebral artery: No occlusion or significant stenosis. No aneurysm. Left anterior cerebral artery: No occlusion or significant stenosis. No aneurysm. POSTERIOR CIRCULATION: Right vertebral artery: No occlusion or significant stenosis. No aneurysm. Left vertebral artery: No occlusion or significant stenosis. No aneurysm. Basilar artery: No occlusion or significant stenosis. No aneurysm. Right posterior cerebral artery: No occlusion or significant stenosis. No aneurysm. Left posterior cerebral artery: No occlusion or significant stenosis. No aneurysm. Brain: No definite mass, mass effect, or midline shift. Cerebral ventricles: No ventriculomegaly. Paranasal sinuses: Mild mucosal thickening in the right frontal sinus and right anterior ethmoidal air cells. Bones/joints: Unremarkable. No acute fracture. Soft tissues: Unremarkable. IMPRESSION: 1. No major vessel cut off/occlusion or high-grade stenosis in the arteries of the [id number]. 2. No acute intracranial abnormality on noncontrast CT. PROCEDURE INFORMATION: Exam: CTA Neck With Contrast Exam date and time: 09/10/2022 11:09 AM Age: 61 years old Clinical indication: Other: Vertigo, seeing yellow spots TECHNIQUE: Imaging protocol: Computed tomographic angiography of the neck with contrast. 3D rendering (Not supervised by radiologist): MIP and/or 3D reconstructed images were created by the technologist. Radiation optimization: All CT scans at this facility use at least one of these dose optimization techniques: automated exposure control; mA and/or kV adjustment per patient size (includes targeted exams where dose is matched to clinical indication); or iterative reconstruction. Contrast material: OMNIPAQUE 350; Contrast volume: 85 ml; Contrast route: INTRAVENOUS (IV); COMPARISON: CT HEAD WO 09/10/2022 7:12 AM FINDINGS: Right common carotid artery: No stenosis. No dissection or occlusion. Right internal carotid artery: No stenosis of the extracranial segment. No dissection or occlusion. Right external carotid artery: No occlusion or stenosis of the origin. Left common carotid artery: No stenosis. No dissection or occlusion. Left internal carotid artery: No stenosis of the extracranial segment. No dissection or occlusion. Left external carotid artery: No occlusion or stenosis of the origin. Right vertebral artery: No stenosis. No dissection or occlusion. Left vertebral artery: No stenosis. No dissection or occlusion. Soft tissues: Normal. No significant soft tissue swelling. Bones/joints: No acute fracture. Lungs: Nonspecific ground-glass densities in the bilateral upper lungs, possible interstitial pulmonary edema. IMPRESSION: No stenosis or occlusion. REFERENCES: NASCET CRITERIA. The degree of stenosis in the cervical segment of the internal carotid artery is based on NASCET criteria. Normal is no stenosis. Mild is less than 50% stenosis. Moderate is 50-69% stenosis. Severe is 70% to 99% stenosis. Total occlusion is no detectable patent lumen. Dictated and Authenticated by: Surya Galindo MD. Ordering:CARMEL Torres MD
== END 2022-09-10 14:22 | disposition home or self-care (01) ==
PROVIDERS: Student in an Organized Health Care Education/Training Program; Emergency Provider Emergency Medicine; PCP Nurse Practitioner Family
DX: R42 Dizziness and giddiness (principal); E11.9 Type 2 diabetes mellitus without complications; H55.00 Unspecified nystagmus
CPT/HCPCS: 36415; 70496; 70498; 80053; 93005; 96361; 96374; 96375; 99284; 70450; 84484; 85025; 93010; J1100; J1200; J2060; J3490

== ENCOUNTER 2022-10-10 10:40 | Outpatient (CLI) | payer BC, SELFPAY | END 2022-10-10 10:41 | disposition home or self-care (01) | LOC: DI.CM 10:41 | PROVIDERS: PCP Nurse Practitioner Family; Visit Provider Nurse Practitioner Family | CPT/HCPCS: 93010 ==

== ENCOUNTER 2023-01-16 10:33 | Outpatient (CLI) | payer BC, SELFPAY ==
--- NOTE | 2023-01-16 10:30 | RT.EKG_ITS ---
APPROVED REPORT Exam: Resting ECG Reason for Exam: chest pain Patient Location: O HR:70 bpm ECG Measurements Heart Rate 70 AXIS CA 161 P 21 QRSd 96 QRS -36 QT 408 T 71 QTc 441 Conclusion Sinus rhythm...normal P axis, V-rate 50- 99 Left axis deviation...QRS axis (-30,-90) Borderline T abnormalities, anterior leads...T flat or neg, V2-V4
== END 2023-01-16 10:34 | disposition home or self-care (01) ==
LOC: DI.CM 10:36
PROVIDERS: PCP Nurse Practitioner Family; Visit Provider Nurse Practitioner Family
DX: R07.9 Chest pain, unspecified (principal)
CPT/HCPCS: 93010

== ENCOUNTER 2023-01-31 01:38 | Outpatient (CLI) | payer BC, SELFPAY ==
--- NOTE | 2023-01-31 07:00 | DI.MAMMO_ITS ---
Exam(s) MAMMO SCREENING EXAM: MAMMO SCREENING CLINICAL HISTORY: screening, Z12.39. TECHNIQUE: Bilateral full field digital CC and MLO mammographic images were obtained with 3D tomosyn thesis and utilizing computer aided detection (CAD). COMPARISON: Prior 2015 mammogram reviewed. There are no interval mammograms since 2015. FINDINGS: There has been no significant change in the appearance and distribution of the fibroglandular tissue. Benign-appearing lymph nodes both breasts remain stable. There are no new spiculated masses nor malignant appearing microcalcification groups. There is no significant architectural distortion nor skin thickening-retraction. IMPRESSION: No radiographic evidence of malignancy. BI-RADS Category 1 - Negative Breast Density - Category B - Scattered areas of fibroglandular density Breast density Category C or D implies that the patient has dense breast tissue. Dense breast tissue can make it harder to find cancer on a mammogram. Dense breast tissue is also associated with an incr eased risk of breast cancer. This information about the result of the mammogram report was provided to the patient to raise their awareness. Use this report when you speak with the patient about their risks for breast cancer, which includes their family history. At that time, you may recommend additional screening tests (Ultrasoun d or MRI) as these tests may add significant information. A negative radiographic report should not delay biopsy if a dominant or clinically suspicious mass is present. Up to ten percent of cancers are not identified on mammography. A negative report may reinforce clinical impression. Adenosis and dense breasts may obscure an underlying neoplasm. False positive reports average 6 to 10%. Patient will receive a letter notifying them of these results.
== END 2023-01-31 01:58 ==
PROVIDERS: PCP Nurse Practitioner Family; Visit Provider Nurse Practitioner Family
DX: Z12.31 Encounter for screening mammogram for malignant neoplasm of breast (principal)
CPT/HCPCS: 77063; 77067

== ENCOUNTER 2023-02-15 05:26 | Outpatient (CLI) | payer BC, SELFPAY ==
[2023-02-15 08:47] LABS: ALT 16 U/L (14-59); AST 16 U/L (15-37); Albumin 3.6 g/dL (3.4-5.0); Alkaline Phosphatase 99 U/L (46-116); Anion Gap 9.1 mmol/L (3-11); BUN 11 mg/dL (7-18); Bilirubin, Total 0.5 mg/dL (0.2-1.0); CO2 27.9 mmol/L (21.0-32.0); CREATININE 0.7 mg/dL (0.55-1.02); Calcium 8.9 mg/dL (8.5-10.1); Calculated LDL 104 mg/dL (<100); Chloride 106 mmol/L (98-107); Cholesterol 185 mg/dL (<200); Estimated GFR 97.72 (mL/min/1.73m2); Glucose 121 mg/dL (74-106); HDL Cholesterol 62 mg/dL (40-60); Potassium 4.3 mmol/L (3.5-5.1); Sodium 143 mmol/L (136-145); Total Protein 7.7 g/dL (6.4-8.2); Triglyceride 95 mg/dL (<150)
== END 2023-02-15 05:27 | disposition home or self-care (01) ==
PROVIDERS: PCP Nurse Practitioner Family; Visit Provider Nurse Practitioner Family
DX: Z13.220 Encounter for screening for lipoid disorders (principal)
CPT/HCPCS: 36415; 80053; 80061

== ENCOUNTER 2023-02-15 09:45 | Outpatient (REF) | payer BC, SELFPAY ==
--- NOTE | 2023-02-15 08:30 | PAPFT_PTH ---
PATIENT: Caryn Santiago LOC: [facility] U#:[id number] AGE/SX: 62/F ROOM: RE02/15/[address]: Keke Leiva MD : 1960 BED: DIS: 02/15/2023 SPEC #: [id number] RECD: 02/15/23 18:20 STATUS: ДМИТРИЙ REDodie #: [id number] CHAD: 02/15/23 08:[address]: Keke Leiva DEPT: [facility] Cytology RECD BY: Jessi Ayala ENTERED: 02/15/23 18:21 SP TYPE: PAPFT OTHR DR: Joselito Herrera DNP Tissues: 1 - CX/ENDOCX FOR PAP SMEARS Procedures: PAP THIN PREP/[facility] Screening HPV DNA PROBE Comments: [id number]
== END 2023-02-15 09:46 | disposition home or self-care (01) ==
LOC: LBN 09:45
PROVIDERS: PCP Nurse Practitioner Family; Visit Provider Obstetrics & Gynecology
DX: Z12.4 Encounter for screening for malignant neoplasm of cervix (principal); Z11.51 Encounter for screening for human papillomavirus (HPV)
CPT/HCPCS: 88142; 87624

== ENCOUNTER 2024-03-04 19:23 | Outpatient (REF) | payer BC, SELFPAY ==
[2024-03-04 21:23] LABS: Anion Gap 9.3 mmol/L (3-11); BUN 12 mg/dL (7-18); CO2 26.7 mmol/L (21.0-32.0); CREATININE 0.8 mg/dL (0.55-1.02); Calcium 8.9 mg/dL (8.5-10.1); Chloride 105 mmol/L (98-107); Estimated GFR 82.74 (mL/min/1.73m2); Glucose 106 mg/dL (74-106); Potassium 3.8 mmol/L (3.5-5.1); Sodium 141 mmol/L (136-145)
== END 2024-03-04 19:24 | disposition home or self-care (01) ==
LOC: LBN 19:23
PROVIDERS: PCP Nurse Practitioner Family; Visit Provider Nurse Practitioner Family
DX: E11.65 Type 2 diabetes mellitus with hyperglycemia
CPT/HCPCS: 80048

== ENCOUNTER 2024-05-13 20:45 | Outpatient (REF) | payer BC, SELFPAY | END 2024-05-13 20:46 | disposition home or self-care (01) | LOC: LBN 20:45 | PROVIDERS: PCP Nurse Practitioner Family; Visit Provider Nurse Practitioner Family | DX: J02.9 Acute pharyngitis, unspecified (principal) | CPT/HCPCS: 87070 ==

== ENCOUNTER 2024-08-26 08:50 | Outpatient (CLI) | payer BC, SELFPAY ==
--- NOTE | 2024-08-26 08:30 | DI.RAD_ITS ---
Exam(s) XR CHEST 2V PA LATERAL EXAM: XR CHEST 2V PA LATERAL CLINICAL HISTORY: cough, r/o pneumonia, R05.9 TECHNIQUE: 2D digital imaging was performed. Two views. COMPARISON: CR ABD FLAT UPRIGHT PA CHEST from 03/20/2008 FINDINGS: HEART: Normal size. Aorta: Not dilated. PULMONARY VASCULATURE: Normal. MEDIASTINUM: Unremarkable. LUNGS: Clear. PLEURAL SPACE: No pleural effusion or pneumothorax. BONE:Unremarkable for age. SOFT TISSUES: Unremarkable. IMPRESSION: No acute abnormality. DATA REPOSITORY: RADIATION DOSE DELIVERED:
== END 2024-08-26 09:10 ==
LOC: DI 08:51
PROVIDERS: PCP Nurse Practitioner Family; Visit Provider Physician Assistant
DX: R05.9 Cough, unspecified (principal)
CPT/HCPCS: 71046

== ENCOUNTER 2024-09-16 00:33 | Outpatient (CLI) | payer BC, SELFPAY ==
--- NOTE | 2024-09-16 08:30 | DI.US_ITS ---
APPROVED REPORT EXAM: Comprehensive 2D, Doppler, and color-flow Echocardiogram Patient Location: Out-Patient Nurse Supervisor: Percy Pittman RDCS (AE) Indications: Chest pain on exertion Other Information Study Quality: Adequate Conclusion Normal left ventricular wall thickness and chamber size. Ejection fraction is 55 to 60%. Wall motio n is normal Normal right ventricular size and function Both atria are normal in size There are no structural or hemodynamically significant valvular abnormalities Estimated right ventricular systolic pressure is 19 mmHg Wall motion Left Ventricle The left ventricle is normal size. The left ventricular systolic function is normal. The left ventric ular ejection fraction is within the normal range. There is normal left ventricular wall thickness. T here is normal LV segmental wall motion. There is no ventricular septal defect visualized. LVEF is 55 -60%. Right Ventricle The right ventricle is normal size. The right ventricular systolic function is normal. Atria The left atrium size is normal. The right atrium size is normal. The interatrial septum is intact wit h no evidence for an atrial septal defect. Aortic Valve The aortic valve is normal in structure. Aortic valve is trileaflet. There is no aortic valvular sten osis. No aortic regurgitation is present. Mitral Valve The mitral valve is normal in structure. No evidence of mitral valve stenosis. Trace mitral regurgita tion. Tricuspid Valve The tricuspid valve is normal in structure. There is no tricuspid valve stenosis. Trace tricuspid reg urgitation. The RVSP is 19.2 mmHg. Pulmonic Valve The pulmonary valve is normal in structure. There is no pulmonic valvular stenosis. Trace pulmonic re gurgitation. Great Vessels The aortic root is normal in size. The ascending aorta is normal in size. Aortic arch is normal in ca liber. IVC is normal in size and collapses >50% with inspiration. Pericardium There is no pericardial effusion. 2D Dimensions IVSD d PLAX 1.21 cm F: 0.6-1.0 Ao Root d 2.81 cm F: 2.7 - 3.3 LVPW d PLAX 0.90 cm F: 0.6 - 1.0 Ao Asc Diam d 2.82 cm F: 2.3 - 3.1 LVID d PLAX 3.87 cm F: 3.8 - 5.2 LVDs 2.58 cm F: 2.2 - 3.5 LV EF Teichholz 62.7 % FS 33.37 % LV EDV (Teich) 64.5 mL LV ESV (Teich) 24.0 mL Stroke Vol Index (Teich) 22.50 M-Mode TAPSE 2.11 cm (M/F) >1.7 LV Volumes - Method of Disks (Hernandez's) Single Plane 2D LV Volumes Biplane 2D LV Volumes LV EDV A4C 83.6 mL LV EDV BP 77.75 mL F: 46 - 106 LV ESV A4C 30.2 mL LV ESV BP 29.5 mL LVEF(%) A4C 63.9 % LVEF(%) BP 62.04 % F: 54 - 74 LV EDV A2C 70.6 mL LV EDV BP Index 43.19 mL/m2 F: 29 - 61 LV ESV A2C 27.3 mL SV BP LVEF(%) A2C 61.4 % SV Index LA Volume LA Length A4C 3.6 cm LA Length A2C 4.4 cm LA Area A4C s 9.12 cm2 LA Area A2C s 11.93 cm2 LA Vol A4C A-L 19.52 mL LA Vol A2C A-L 27.42 mL LA Vol Biplane A-L 25.5 mL LA Vol/BSA A4C A-L LA Vol/BSA A2C A-L LA Vol/BSA BP A-L 14.2 mL/m2 LA Vol A4C MOD 18.4 mL LA Vol A2C MOD 25.4 mL LA Vol BP MOD 23.7 mL RA Volume RA Area A4C 9.0 cm2 RA ESV A4C (A-L) 20.5mL RA Vol/BSA A4C A-L RA Length A4C 3.4 cm RA ESV A4C (MOD) 19.3mL LV Diastology MV E' medial 0.066 (>0.07 m/s) MV E Vmax 0.75 (0.4-1.3 m/s) MV E/E' MED 11.45 (<14) MV A Vmax 0.95 (0.4-1.3 m/s) MV E' lateral 0.097 (>0.1 m/s) E/A Ratio 0.8 MV E/E' LAT 7.74 (<14) MV E' Average 0.082 m/s MV E/E'(average) 9.23 Aortic Valve AoV Vmax 1.40 m/s LVOT Vmax 0.94 m/s AoV Peak Grad 7.9 mmHg LVOT Peak Grad 3.5 mmHg AoV Area (Vmax) 2.07 cm2 LVOT VTI 0.201 m AoV VTI 0.302 m LVOT Mean Grad 2.0 mmHg AoV Mean Austyn. 0.94 m/s LVOT SV 62.36 mL AoV Mean Grad 4.1 mmHg LVOT Diam s 1.95 cm AoV Area (VTI) 2.06 cm2 AV Regurg Peak Gr. 7.87 mmHg Velocity Ratio 0.67 Mitral Valve MV DT 161 (160-240 msec) MV Vmax TIPS 0.97 m/s MV Mean Grad 1.8 (<2mmHg) MV VTI 0.274 m Pulmonary Valve PV Vmax 0.81 (0.5-1.5 m/s) RVOT Vmax 0.64 m/s PV Peak Grad 2.6 mmHg RVOT Peak Gr. 1.6 mmHg PV Mean Austyn 0.61 m/s RVOT VTI 0.146 m PV Mean Grad 1.7 mmHg RVOT Mean Gr. 1.0 mmHg Tricuspid Valve RA Pressure 3.00 mmHg TR Vmax 2.01 m/s TR Peak Grad 16.1 mmHg RVSP (TR) 19.2 mmHg
== END 2024-09-16 00:53 ==
LOC: DI 00:34
PROVIDERS: PCP Nurse Practitioner Family; Visit Provider Internal Medicine Cardiovascular Disease
DX: R07.9 Chest pain, unspecified (principal)
CPT/HCPCS: 93306